=== PATIENT | male | born 1965 | race Caucasian/White ===

== ENCOUNTER → 2023-03-16 09:43 | Outpatient (BNVA) | payer OTHER, SELFPAY | PROVIDERS: PCP Family Medicine; Referring Provider Family Medicine; Visit Provider Physician Assistant Surgical | DX: R09.02 Hypoxemia (principal); I50.9 Heart failure, unspecified; I25.9 Chronic ischemic heart disease, unspecified | CPT/HCPCS: 94618; 99205 ==

== ENCOUNTER 2023-03-25 04:12 | Outpatient (CLI) | payer OTHER, SELFPAY ==
[2023-03-25 09:59] LABS: Abs Immature Grans 0.04 10^3/uL (0.0-0.06); Absolute Basophil Count 0.03 10^3/uL (0.0-0.2); Absolute Eosinophil Count 0.16 10^3/uL (0.0-0.7); Absolute Monocyte Count 0.42 10^3/uL (0.1-0.8); Absolute Neutrophil Count 4.21 10^3/uL (1.2-6.7); Basophils % 0.5; Eosinophils % 2.7; HCT 37.5 % (40.0-50.0); HGB 11.4 g/dL (13.5-17.5); Immature Grans % 0.7; Lymphocytes % 18.5; MCH 24.2 pg (27.0-33.0); MCHC 30.4 % (32.0-36.0); MCV 79 fL (80-95); MPV 8.5 fL (8.0-11.0); Neutrophils % 70.6; Platelet Count 264 10^3/uL (130-400); RBC 4.72 10^6/uL (4.36-5.78); RDW 15.8 % (11.8-14.1); RDW-SD 45.4 fL; WBC 5.96 10^3/uL (4.4-10.8)
[2023-03-25 11:04] LABS: NT-proBNP 58 pg/mL (<300)
== END 2023-03-25 04:13 | disposition home or self-care (01) ==
LOC: LBO 04:12
PROVIDERS: PCP Family Medicine; Visit Provider Physician Assistant Surgical
DX: R09.02 Hypoxemia (principal); I50.9 Heart failure, unspecified
CPT/HCPCS: 36415; 83880; 85025

== ENCOUNTER 2023-03-25 04:49 | Outpatient (CLI) | payer OTHER, SELFPAY ==
[2023-03-25 10:21] LABS: BE 2 mmol/L (-2-3); HCO3 27 mmol/L (22-26); pCO2 43 mmHg (35-45); pO2 58 mmHg (80-105); sO2 89 % (95-98); tCO2 25 mmol/L (23-27)
[2023-03-25 10:24] LABS: FIO2 Unknown/Not Given %; FIO2L Unknown/Not Given L; Site Left Radial
== END 2023-03-25 04:50 | disposition home or self-care (01) ==
LOC: RT 04:49
PROVIDERS: PCP Family Medicine; Visit Provider Physician Assistant Surgical
DX: R09.02 Hypoxemia (principal)
CPT/HCPCS: 82805; 36600

== ENCOUNTER → 2023-04-13 01:17 | Outpatient (CLI) | payer OTHER, SELFPAY ==
--- NOTE | 2023-04-13 07:45 | DI.CT_ITS ---
Exam(s) CT CHEST WO EXAM: CT CHEST WO CLINICAL HISTORY: hypoxia,R09.02. TECHNIQUE: Imaging protocol: Axial computed tomography images were obtained and coronal and sagittal reformatted images were created and reviewed. COMPARISON: CT CT CTA CHEST W AND/OR WO CONTRAST from 03/02/2023 FINDINGS: Tracheobronchial tree: Patent where visualized. Pulmonary parenchyma: There are areas of atelectasis in the lower lobes. No focal consolidating infi ltrates are seen. No pulmonary nodules are present. No architectural distortion. Mediastinum and [place]: No dominant adenopathy or fluid collection. The esophagus is unremarkable. Thyroid gland: Unremarkable. Pleura: No effusion or pneumothorax. Heart: The heart is not dilated. Coronary artery calcifications are present. No pericardial effusion . Aorta: Thoracic aorta non-dilated. Atherosclerotic calcification of the thoracic aorta is noted. Upper abdomen: Unremarkable. Lymph nodes: Within normal limits. Soft tissues: Unremarkable. Bones:Within normal limits for the patient's age. IMPRESSION: 1. No acute pulmonary process. No focal consolidating infiltrates. 2. Mild atherosclerotic calcification of the thoracic aorta. Coronary artery calcifications. RADIATION DOSE DELIVERED: Total DLP Total DLP DATA REPOSITORY: All CT scans at this facility are submitted to the National Radiology Data Registry (NRDR) Dose Index Registry (DIR) with the [employer] (A[employer]). RADIATION OPTIMIZATION: All CT scans at this facility use at least one of these dose optimization te chniques: automated exposure control; mA and/or kV adjustment per patient size (includes targeted exa ms where dose is matched to clinical indication); or iterative reconstruction.
== END ==
PROVIDERS: PCP Family Medicine; Visit Provider Physician Assistant Surgical
DX: R09.02 Hypoxemia (principal)
CPT/HCPCS: 71250

== ENCOUNTER → 2023-04-19 01:48 | Outpatient (CLI) | payer OTHER, SELFPAY ==
--- NOTE | 2023-04-19 08:30 | DI.US_ITS ---
APPROVED REPORT EXAM: Comprehensive 2D, Doppler, and color-flow Echocardiogram Patient Location: Out-Patient Gate [facility] Operator: Jay Toledo RDCS (AE) Indications: Hypoxia, myocardial infarction Echo Enhancing Agent Indication: Rule out Shunt Agent(s) / Amount(s) Used: Agitated Saline 30.0 cc Comments: Contrast study was performed with 3 IV injections of 10ccs of agitated normal saline, at st, with cough and post valsalva maneuver. Other Information Technically limited study due to body habitus. Conclusion Normal left ventricular wall thickness and chamber size. Ejection fraction is 55-60%. Wall motion i s normal Normal right ventricular size and function Left atrium is mildly dilated. Normal right atrial size Injection of agitated saline was nondiagnostic There was no structural or hemodynamically significant valvular disease Ascending aorta measured 3.61 cm Wall motion Left Ventricle The left ventricle is normal size. The left ventricular systolic function is normal. The left ventric ular ejection fraction is within the normal range. There is normal left ventricular wall thickness. T here is normal LV segmental wall motion. There is no ventricular septal defect visualized. LVEF is 55 -60%. Right Ventricle The right ventricle is normal size. Right ventricular systolic function is grossly normal. Atria Left atrium is mildly dilated. Right atrium is normal Saline bubble contrast intravenous injection is inconclusive. Bubble study done as protocol, very minimal bubbles appeared during injections. Aortic Valve Aortic valve is trileaflet. There is no aortic valvular stenosis. No aortic regurgitation is present. Mitral Valve The mitral valve is normal in structure. No evidence of mitral valve stenosis. There is no mitral mauro ve regurgitation noted. Tricuspid Valve The tricuspid valve is normal in structure. There is no tricuspid valve stenosis. Trace tricuspid reg urgitation. Unable to assess PA pressure. Pulmonic Valve The pulmonary valve is normal in structure. There is no pulmonic valvular stenosis. There is no pulmo navjot valvular regurgitation. Great Vessels The aortic root is normal in size. The ascending aorta is mildly dilated. Aortic arch is normal in ca liber. IVC is normal in size and collapses >50% with inspiration. Pericardium There is no pericardial effusion. 2D Dimensions IVSD d PLAX 0.93 cm M: 0.6-1.2 Ao Root d 3.02 cm M: 3.1 - 3.7 LVPW d PLAX 0.90 cm M: 0.6 - 1.2 Ao Asc Diam d 3.61 cm M: 2.6 - 3.4 LVID d PLAX 4.83 cm M: 4.2 - 5.8 LVDs 3.35 cm M: 2.5 - 4.0 LV EF Teichholz 58.0 % FS 30.64 % LV EDV (Teich) 109.0 mL LV ESV (Teich) 45.7 mL Stroke Vol Index (Teich) 26.37 M-Mode TAPSE 2.66 cm (M/F) >1.7 Auto EF LV EDV A4C 144.1 mL LV EDV A2C 207.5 mL LV EDV BP 171.2 mL LV ESV A4C 65.1 mL LV ESV A2C 92.5 mL LV ESV BP 76.9 mL LVEF(%) A4C 54.8 % LVEF(%) A2C 55.4 % LVEF(%) BP 55.1 % LV SV A4C 79.0 ml LV SV A2C 115.0 ml LV SV BP 94.3 ml LV CO A4C 7.0 L/min LV CO A2C 10.3 L/min LV CO BP 8.7 L/min HR A4C 88.89 BPM HR A2C 89.78 BPM LV EDV Index (BP) LA Volume LA Length A4C 5.0 cm LA Length A2C 4.8 cm LA Area A4C s 9.87 cm2 LA Area A2C s 25.15 cm2 LA Vol A4C A-L 16.69 mL LA Vol A2C A-L 112.66 mL LA Vol Biplane A-L 44.2 mL LA Vol/BSA A4C A-L LA Vol/BSA A2C A-L LA Vol/BSA BP A-L 18.4 mL/m2 LA Vol A4C MOD 15.6 mL LA Vol A2C MOD 101.6 mL LA Vol BP MOD 40.5 mL RA Volume RA Area A4C 10.7 cm2 RA ESV A4C (A-L) 23.3mL RA Vol/BSA A4C A-L RA Length A4C 4.1 cm RA ESV A4C (MOD) 21.3mL LV Diastology MV E' medial 0.077 (>0.07 m/s) MV E Vmax 0.79 (0.4-1.3 m/s) MV E/E' MED 10.18 (<14) MV A Vmax 0.85 (0.4-1.3 m/s) MV E' lateral 0.128 (>0.1 m/s) E/A Ratio 0.9 MV E/E' LAT 6.14 (<14) MV E' Average 0.103 m/s MV E/E'(average) 7.66 Aortic Valve AoV Vmax 1.25 m/s LVOT Vmax 1.14 m/s AoV Peak Grad 6.2 mmHg LVOT Peak Grad 5.2 mmHg AoV Area (Vmax) 3.75 cm2 LVOT VTI 0.215 m AoV VTI 0.239 m LVOT Mean Grad 3.0 mmHg AoV Mean Michael. 0.90 m/s LVOT SV 88.17 mL AoV Mean Grad 3.6 mmHg LVOT Diam s 2.25 cm AoV Area (VTI) 3.69 cm2 Velocity Ratio 0.91 Pulmonary Valve PV Vmax 1.09 (0.5-1.5 m/s) RVOT Vmax 0.64 m/s PV Peak Grad 4.8 mmHg RVOT Peak Gr. 1.7 mmHg PV Mean Michael 0.70 m/s RVOT VTI 0.090 m PV Mean Grad 2.4 mmHg RVOT Mean Gr. 0.8 mmHg
== END ==
PROVIDERS: PCP Family Medicine; Visit Provider Physician Assistant Surgical
DX: J96.01 Acute respiratory failure with hypoxia (principal); I21.29 ST elevation (STEMI) myocardial infarction involving other sites
CPT/HCPCS: 93306

== ENCOUNTER 2023-05-04 05:25 | Outpatient (CLI) | payer OTHER, SELFPAY ==
[2023-05-04] MEDS: Levalbuterol HFA 15 GM INH 4 PUFF IH (11:09)
[2023-05-04] MEDS: Inhaler, Assist Device 1 EACH MC (11:10)
--- NOTE | 2023-05-04 14:55 | W.PFT ---
Date of service: 05/04/23 Time of Service: 10:06 Pulmonary Function Test Result Indications: Dyspnea Interpretation Spirometry: There is no airflow limitation. Restrictive spirometry. Bronchodilator response not completed due to development of chest pain. Lung Volumes: Moderate restrictive lung disease Diffusion Capacity: Decreased diffusion Airway Pressure: Normal airways resistance Impression Moderate restrictive lung disease with a decreased diffusion consistent with interstitial lung disease. Recommend chest imaging, if not already completed. Note: Patient developed chest pain during second DLCO attempt, so further testing was aborted. Patient declined being seen in the ED. Clinical Correlation therefore is recommended.
== END 2023-05-04 05:26 | disposition home or self-care (01) ==
LOC: RT 05:26
PROVIDERS: PCP Family Medicine; Visit Provider Physician Assistant Surgical
DX: J84.9 Interstitial pulmonary disease, unspecified (principal)
CPT/HCPCS: 94010; 94726; 94729

== ENCOUNTER → 2023-06-14 14:56 | Outpatient (BNVA) | payer OTHER, SELFPAY | PROVIDERS: PCP Family Medicine; Referring Provider Family Medicine; Visit Provider Student in an Organized Health Care Education/Training Program | DX: R09.02 Hypoxemia (principal); G47.30 Sleep apnea, unspecified; J98.4 Other disorders of lung; E66.9 Obesity, unspecified | CPT/HCPCS: 99214 ==

== ENCOUNTER 2023-06-14 18:07 | Outpatient (REF) | payer OTHER, SELFPAY | END 2023-06-14 18:08 | disposition home or self-care (01) | LOC: LBN 18:07 | PROVIDERS: PCP Family Medicine; Visit Provider Student in an Organized Health Care Education/Training Program | DX: J45.909 Unspecified asthma, uncomplicated (principal); R09.3 Abnormal sputum; R05.8 Other specified cough | CPT/HCPCS: 87070; 87205 ==

== ENCOUNTER → 2023-06-16 03:27 | Outpatient (CLI) | payer OTHER, SELFPAY ==
--- NOTE | 2023-06-16 07:00 | DI.NM_ITS ---
Exam(s) NM LUNG SCAN VENT PERF GRP EXAM: NM LUNG SCAN VENT PERF GRP CLINICAL HISTORY: unexplained hypoxia,r09.02. TECHNIQUE: Injected Dose: Ventilation: 34 mCi Tc-99m DTPA via inhalation Perfusion: 4 mCi Tc-99m MAA via IV COMPARISON: CR XR CHEST 2V PA LATERAL from 06/16/2023 FINDINGS: Chest X-Ray: Bibasilar atelectasis versus scarring or infiltrates. Lungs suboptimally inflated. Perfusion: Normal. Ventilation:Normal IMPRESSION: 1. Low probability VQ examination. . . . Modified PIOPED II criteria Probability Criteria High Two or more segments of V/Q mismatch Low Normal Perfusion, Non segmental perfusion abnormalitie s, pleural effusion in at least 1/3 of pleural cavity with no other defect Radiograph/perfusion matched defect in mid to upper lung confined to segment, one to three small segmental perfusion defects (<25% of segment) Perfusion defect smaller than corresponding radiogra phic lesion. Intermediate All other findings DATA REPOSITORY:
--- NOTE | 2023-06-16 08:24 | DI.RAD_ITS ---
Exam(s) XR CHEST 2V PA LATERAL EXAM: XR CHEST 2V PA LATERAL CLINICAL HISTORY: pre vq lung scan, unexplained hypoxia,r09.02 TECHNIQUE: 2D digital imaging was performed. Two views. COMPARISON: CT CT CHEST WO from 04/13/2023 FINDINGS: Exam limited by poor pulmonary inflation. HEART: Normal size. Aorta: Not dilated. PULMONARY VASCULATURE: Normal. LUNGS: Bibasilar atelectasis versus scarring, similar to prior CT. PLEURAL SPACE: No pleural effusion or pneumothorax. BONE:Unremarkable for age. Soft tissues: Unremarkable. IMPRESSION: Limited exam due to poor pulmonary inflation. No acute abnormality. DATA REPOSITORY: RADIATION DOSE DELIVERED:
== END ==
PROVIDERS: PCP Family Medicine; Visit Provider Student in an Organized Health Care Education/Training Program
DX: R09.02 Hypoxemia (principal)
CPT/HCPCS: 78582; 71046